=== PATIENT | female | born 1940 | race Caucasian/White ===

== ENCOUNTER 2017-08-20 16:15 | Inpatient (IN) | payer MEDICARE, OTHER ==
[~2017-08-20] VITALS: Ht 165.1 cm; Wt 94.8 kg
[~2017-08-20 16:15] MED LIST: ACET120S PO; ACET500 PO; ACET650SUP PR; ACIDOPHILUS1 EAC1 PO; ASCO500 PO; BENZ100A PO; BEPREVE; CALCAVITDA PO; CALCIUM WITH V1 EACH PO; CETI5 PO; CHOL10002; CLARITIN10 MG PO; CONEST.625 PO; CONESTTC PV; CYAN1000 PO; DESL5 PO; Diovan320 MG PO; ERGO400 PO; ERYT.5TO OD; ESOM20 PO; FURO20 PO; Halls Cough Dr1 EACH MM; METR70GEL VAG; MULVITMINE PO; Metrogel 1% 6060 GM VAG; NAPR220 PO; NASACORT10.8 ML; PEPCID COMPLETE; PIRO10 PO; PREG50 PO; PREMARIN CREAM TOP; PROP30DR OP; SALINE NASAL M126 ML; SERT100 PO; SERT25 PO; TRIA55OI; VALS80 PO; Xalatan2.5 ML BOTHEYES; [UNRECOGNIZED DRUG - OTHER]; [UNRECOGNIZED DRUG - OTHER] BOTHEYES; [UNRECOGNIZED DRUG - OTHER] PR
[2017-09-10] MEDS ORDERED: Nexium40 MG PO (09:54)
[2017-09-10] MEDS ORDERED: ASPI325EC PO (11:41)
[2017-09-10] MEDS ORDERED: OXYC5 PO (11:41)
[2017-09-10] MEDS ORDERED: PROM25 PO (11:43)
[2017-09-11 05:08] LABS: BASOPHILS ABSOLUTE AUTO 0.01 K/mm3 (0.00-0.23); BASOPHILS PERCENT AUTO 0 % (0-2); EOSINOPHILS ABSOLUTE AUTO 0.03 K/mm3 (0.00-0.68); EOSINOPHILS PERCENT AUTO 0 % (0-6); Hematocrit 36.9 % (33.0-51.0); Hemoglobin 11.2 g/dL (11.5-16.0); IMMATURE GRAN ABSOLUTE AUTO 0.03 K/mm3 (0.00-0.10); IMMATURE GRAN PERCENT AUTO 0 % (0-1); LYMPHOCYTES ABSOLUTE AUTO 1.76 K/mm3 (0.84-5.20); LYMPHOCYTES PERCENT AUTO 22 % (21-46); MONOCYTES ABSOLUTE AUTO 0.89 K/mm3 (0.16-1.47); MONOCYTES PERCENT AUTO 11 % (4-13); Mean Corpuscular HGB 25.6 pg (26.0-34.0); Mean Corpuscular HGB Conc 30.4 g/dL (31.5-36.5); Mean Corpuscular Volume 84 fL (80-100); NEUTROPHILS ABSOLUTE AUTO 5.29 K/mm3 (1.96-9.15); NEUTROPHILS PERCENT AUTO 66 % (41-73); RDW Coefficient Variation 14.8 % (11.7-14.2); RDW Standard Deviation 45.2 fL (35.1-46.3); Red Blood Cell Count 4.37 M/mm3 (3.80-5.20); White Blood Cell Count 8.01 K/mm3 (4.00-11.30)
[2017-09-11 05:12] LABS: Mean Platelet Volume 10.6 fL (9.1-12.4); Platelet Count 149 K/mm3 (150-400)
[2017-09-11 05:23] LABS: Anion Gap 7 mmol/L (6-16); Blood Urea Nitrogen 17 mg/dL (8-24); Bun/Creatinine Ratio 23.8 (12.0-20.0); CO2, Blood 29 mmol/L (21-32); Calcium, Blood 8.5 mg/dL (8.5-10.1); Chloride, Blood 104 mmol/L (98-108); Creatinine, Blood 0.71 mg/dL (0.40-1.00); Glomerular Filtration Rate >60 (60-); Glucose, Blood 114 mg/dL (70-99); Magnesium, Blood 2.3 mg/dL (1.6-2.4); Potassium, Blood 4.1 mmol/L (3.5-5.5); Sodium, Blood 140 mmol/L (136-145)
== END 2017-09-15 16:55 | DRG 470 ==
LOC: SURS 09-10 09:15 → PRE IP 09-10 09:15 → SURS 09-10 14:22
PROVIDERS: Orthopaedic Surgery
PROC: 8E0YXBZ Computer Assisted Procedure of Lower Extremity (ICD-10-PCS; 2017-09-10)
PROC: 0SRD0J9 Replacement of Left Knee Joint with Synthetic Substitute, Cemented, Open Approach (ICD-10-PCS; principal; 2017-09-10 10:30)
DX: M17.12 Unilateral primary osteoarthritis, left knee (principal); F32.9 Major depressive disorder, single episode, unspecified; I10 Essential (primary) hypertension; Z79.899 Other long term (current) drug therapy; Z88.5 Allergy status to narcotic agent; Z88.8 Allergy status to other drugs, medicaments and biological substances; Z87.891 Personal history of nicotine dependence
CPT/HCPCS: 36415; 73560-LT; 80048; 83735; 85025; 86850; 86900; 86901; 88300; 97110; 97116; 97162; 97530; C1713; C1776; G8978; G8979; G8980; J0171; J0690; J0735; J1100; J1885; J2250; J2370; J2405; J2795; J3010; J7120; Q0163

== ENCOUNTER 2017-11-17 19:04 | Emergency (ER) | payer MEDICARE, OTHER ==
[~2017-11-17] VITALS: Ht 167.6 cm; Wt 95.2 kg
[~2017-11-17 19:04] MED LIST changes: +ASPI325EC PO; +Nexium40 MG PO; +OXYC5 PO; +PROM25 PO
[2017-11-17 19:50] LABS: BASOPHILS ABSOLUTE AUTO 0.06 K/mm3 (0.00-0.23); BASOPHILS PERCENT AUTO 1 % (0-2); EOSINOPHILS ABSOLUTE AUTO 0.62 K/mm3 (0.00-0.68); EOSINOPHILS PERCENT AUTO 6 % (0-6); Hematocrit 36.7 % (33.0-51.0); Hemoglobin 11.4 g/dL (11.5-16.0); IMMATURE GRAN ABSOLUTE AUTO 0.03 K/mm3 (0.00-0.10); IMMATURE GRAN PERCENT AUTO 0 % (0-1); LYMPHOCYTES ABSOLUTE AUTO 3.29 K/mm3 (0.84-5.20); LYMPHOCYTES PERCENT AUTO 34 % (21-46); MONOCYTES ABSOLUTE AUTO 0.84 K/mm3 (0.16-1.47); MONOCYTES PERCENT AUTO 9 % (4-13); Mean Corpuscular HGB 25.7 pg (26.0-34.0); Mean Corpuscular HGB Conc 31.1 g/dL (31.5-36.5); Mean Corpuscular Volume 83 fL (80-100); Mean Platelet Volume 10.4 fL (9.1-12.4); NEUTROPHILS ABSOLUTE AUTO 4.96 K/mm3 (1.96-9.15); NEUTROPHILS PERCENT AUTO 51 % (41-73); Platelet Count 251 K/mm3 (150-400); RDW Coefficient Variation 14.6 % (11.7-14.2); Red Blood Cell Count 4.43 M/mm3 (3.80-5.20)
[2017-11-17 20:33] LABS: Alanine Aminotransfer (ALT/SGP 17 U/L (12-78); Albumin, Blood 3.7 g/dL (3.4-5.0); Albumin/Globulin Ratio 1.1 (0.8-1.8); Alk Phos 73 U/L (50-136); Anion Gap 6 mmol/L (6-16); Aspartate Aminotrans (AST/SGOT 16 U/L (12-37); Bilirubin, Total 0.2 mg/dL (0.1-1.0); Blood Urea Nitrogen 22 mg/dL (8-24); Bun/Creatinine Ratio 25.8 (12.0-20.0); CO2, Blood 26 mmol/L (21-32); Calcium, Blood 9.1 mg/dL (8.5-10.1); Chloride, Blood 106 mmol/L (98-108); Creatinine, Blood 0.85 mg/dL (0.40-1.00); Globulin, Blood 3.3 g/dL (2.2-4.0); Glomerular Filtration Rate >60 (60-); Glucose, Blood 106 mg/dL (70-99); Potassium, Blood 3.8 mmol/L (3.5-5.5); Sodium, Blood 138 mmol/L (136-145)
== END 2017-11-17 22:05 | disposition home or self-care (01) ==
LOC: ER 19:04
PROVIDERS: Emergency Medicine
DX: R42 Dizziness and giddiness (principal); I10 Essential (primary) hypertension; Z88.5 Allergy status to narcotic agent; Z88.8 Allergy status to other drugs, medicaments and biological substances; Z91.048 Other nonmedicinal substance allergy status; Z91.040 Latex allergy status; Z79.82 Long term (current) use of aspirin; Z79.899 Other long term (current) drug therapy; W19.XXXA Unspecified fall, initial encounter
CPT/HCPCS: 36415; 70450; 80053; 81000; 85025; 93005; 93010; 99284

== ENCOUNTER → 2018-01-29 | Outpatient (CLI) | payer MEDICARE, OTHER ==
[2018-01-29 17:18] LABS: Source, Urine Clean Catch
[2018-01-29 19:09] LABS: Bilirubin, Urine Neg (Neg); Blood, Urine 1+ (Neg); Glucose Qualitative, Urine Neg (Neg); Ketones, Urine Neg (Neg); Leukocyte Esterase, Urine Neg (Neg); Nitrite, Urine Neg (Neg); Protein, Urine Neg (Neg); Specific Gravity, Urine 1.005 (1.003-1.022); Urobilinogen, Urine 1+ (Normal)
[2018-01-29 19:15] LABS: Appearance, Urine Clear (Clear); Color, Urine Yellow (P-Yellow); White Blood Cells, Urine 0-2 /hpf (0-5)
[2018-01-29 19:16] LABS: Bacteria Few /hpf; Squamous Epithelial Cells Few /hpf (Few)
== END | disposition home or self-care (01) ==
LOC: OLS 17:16 → LAB SHORT 17:16
PROVIDERS: Internal Medicine
DX: R32 Unspecified urinary incontinence (principal)
CPT/HCPCS: 81001

== ENCOUNTER 2018-02-02 14:24 | Day surgery (SDC) | payer MEDICARE, OTHER ==
[2018-02-02] MEDS ORDERED: FURO20 PO (15:20)
[2018-02-02] MEDS ORDERED: CLARITIN PO (15:21)
[2018-02-02] MEDS ORDERED: ERYTHROMYCIN BOTHEYES (15:23)
[2018-02-02] MEDS ORDERED: CYAN500 PO (15:24)
== END 2018-02-02 15:08 | disposition home or self-care (01) ==
LOC: ATC 14:24
DX: N39.46 Mixed incontinence (principal); Z79.899 Other long term (current) drug therapy; I10 Essential (primary) hypertension; K21.9 Gastro-esophageal reflux disease without esophagitis; E78.5 Hyperlipidemia, unspecified; F32.9 Major depressive disorder, single episode, unspecified; J44.9 Chronic obstructive pulmonary disease, unspecified; G47.33 Obstructive sleep apnea (adult) (pediatric); M79.7 Fibromyalgia; E66.9 Obesity, unspecified; Z87.891 Personal history of nicotine dependence; Z68.33 Body mass index [BMI] 33.0-33.9, adult

== ENCOUNTER → 2018-12-29 | Outpatient (CLI) | payer MEDICARE, OTHER ==
[~2018-12-29] MED LIST changes: +ACIDOPHILUS PO; +Avapro300 MG PO; +CLARITIN PO; +CYAN500 PO; +Caltrate-600 W1 EACH PO; +Colace100 MG PO; +ERYTHROMYCIN BOTHEYES; +IRBESARTAN300 MG PO; +KETOROLAC TROMET5 ML; +LIDO700A20 TOP; +METAMUCIL0.4 GM; +METROGEL TOP; +MIRALAX17 GM PO; +Prednisolone Ace5 ML; +Reclast 55 MG/100 M; -SERT25 PO; +SERT50 PO; +VITAMIN D-32000 UNIT PO; +Vitamin B-121000 MCG PO; +ZYRTEC10 M1 PO; +Zoloft100 MG PO
== END | disposition home or self-care (01) ==
LOC: LAB SHORT 11:31 → PLD 11:31
DX: D48.5 Neoplasm of uncertain behavior of skin (principal)
CPT/HCPCS: 88305

== ENCOUNTER 2019-02-17 16:32 | Observation (INO) | payer MEDICARE, OTHER ==
[~2019-02-17] VITALS: Ht 167.6 cm; Wt 95.6 kg
[~2019-02-17 16:32] MED LIST changes: -ACIDOPHILUS PO; -Avapro300 MG PO; -Caltrate-600 W1 EACH PO; -Colace100 MG PO; -IRBESARTAN300 MG PO; -KETOROLAC TROMET5 ML; -LIDO700A20 TOP; -METAMUCIL0.4 GM; -METROGEL TOP; -MIRALAX17 GM PO; -PREG50 PO; -Prednisolone Ace5 ML; -Reclast 55 MG/100 M; -SERT50 PO; -VITAMIN D-32000 UNIT PO; -Vitamin B-121000 MCG PO; -Xalatan2.5 ML BOTHEYES; -ZYRTEC10 M1 PO; -Zoloft100 MG PO
[2019-02-17 17:18] LABS: BASOPHILS ABSOLUTE AUTO 0.04 K/mm3 (0.00-0.23); BASOPHILS PERCENT AUTO 0 % (0-2); EOSINOPHILS ABSOLUTE AUTO 0.03 K/mm3 (0.00-0.68); EOSINOPHILS PERCENT AUTO 0 % (0-6); Hematocrit 42.7 % (33.0-51.0); Hemoglobin 12.9 g/dL (11.5-16.0); IMMATURE GRAN ABSOLUTE AUTO 0.04 K/mm3 (0.00-0.10); IMMATURE GRAN PERCENT AUTO 0 % (0-1); LYMPHOCYTES ABSOLUTE AUTO 2.65 K/mm3 (0.84-5.20); LYMPHOCYTES PERCENT AUTO 20 % (21-46); MONOCYTES ABSOLUTE AUTO 0.78 K/mm3 (0.16-1.47); MONOCYTES PERCENT AUTO 6 % (4-13); Mean Corpuscular HGB Conc 30.2 g/dL (31.5-36.5); Mean Corpuscular Volume 83 fL (80-100); Mean Platelet Volume 10.4 fL (9.1-12.4); NEUTROPHILS ABSOLUTE AUTO 9.43 K/mm3 (1.96-9.15); NEUTROPHILS PERCENT AUTO 73 % (41-73); Platelet Count 253 K/mm3 (150-400); RDW Coefficient Variation 15.6 % (11.7-14.2); RDW Standard Deviation 47.1 fL (35.1-46.3); Red Blood Cell Count 5.16 M/mm3 (3.80-5.20); White Blood Cell Count 12.97 K/mm3 (4.00-11.30)
[2019-02-17 17:30] LABS: Source, Urine Catheter
[2019-02-17 17:35] LABS: Troponin I <0.015 ng/mL (0.000-0.040)
[2019-02-17 17:38] LABS: Alanine Aminotransfer (ALT/SGP 24 U/L (12-78); Albumin, Blood 3.7 g/dL (3.4-5.0); Albumin/Globulin Ratio 1.1 (0.8-1.8); Alk Phos 76 U/L (50-136); Anion Gap 5 mmol/L (6-16); Aspartate Aminotrans (AST/SGOT 18 U/L (12-37); Bilirubin, Total 0.6 mg/dL (0.1-1.0); Blood Urea Nitrogen 10 mg/dL (8-24); Bun/Creatinine Ratio 14.8 (12.0-20.0); CO2, Blood 28 mmol/L (21-32); Calcium, Blood 9.2 mg/dL (8.5-10.1); Chloride, Blood 108 mmol/L (98-108); Creatinine, Blood 0.68 mg/dL (0.40-1.00); Globulin, Blood 3.5 g/dL (2.2-4.0); Glomerular Filtration Rate >60 (60-); Glucose, Blood 122 mg/dL (70-99); Potassium, Blood 3.8 mmol/L (3.5-5.5); Sodium, Blood 141 mmol/L (136-145); Total Protein, Blood 7.2 g/dL (6.4-8.2)
[2019-02-17 17:38] LABS: Bilirubin, Urine Neg (Neg); Blood, Urine 4+ (Neg); Glucose Qualitative, Urine Neg (Neg); Ketones, Urine 2+ (Neg); Leukocyte Esterase, Urine 1+ (Neg); Nitrite, Urine Neg (Neg); Protein, Urine 1+ (Neg); Urobilinogen, Urine 1+ (Normal)
[2019-02-17 17:58] LABS: Appearance, Urine Clear (Clear); Color, Urine Yellow (P-Yellow)
[2019-02-17 18:00] LABS: Bacteria Rare /hpf; Renal Epithelial Few /hpf (0-Rare); Squamous Epithelial Cells Rare /hpf (Few)
[2019-02-17] MEDS ORDERED: METROGEL TOP (18:11)
[2019-02-17] MEDS ORDERED: BENZ100A PO (18:11)
[2019-02-17] MEDS ORDERED: PREG50 PO ×2 (20:48→21:41)
[2019-02-17] MEDS ORDERED: Avapro300 MG PO (20:49)
[2019-02-17] MEDS ORDERED: SERT50 PO (20:49)
[2019-02-17] MEDS ORDERED: Prednisolone Ace5 ML (20:51)
[2019-02-17] MEDS ORDERED: Xalatan2.5 ML BOTHEYES (20:51)
[2019-02-17] MEDS ORDERED: KETOROLAC TROMET5 ML (20:51)
[2019-02-17] MEDS ORDERED: IRBESARTAN300 MG PO (21:32)
[2019-02-17] MEDS ORDERED: ZYRTEC10 M1 PO (21:33)
[2019-02-17] MEDS ORDERED: ESOM20 PO (21:33)
[2019-02-17] MEDS ORDERED: PIRO10 PO (21:34)
[2019-02-17] MEDS ORDERED: Zoloft100 MG PO (21:34)
[2019-02-17] MEDS ORDERED: Caltrate-600 W1 EACH PO (21:36)
[2019-02-17] MEDS ORDERED: VITAMIN D-32000 UNIT PO (21:38)
[2019-02-17] MEDS ORDERED: ACIDOPHILUS PO (21:39)
[2019-02-17] MEDS ORDERED: ACET500 PO (21:39)
[2019-02-17] MEDS ORDERED: Colace100 MG PO (21:40)
[2019-02-17] MEDS ORDERED: METAMUCIL0.4 GM (21:40)
[2019-02-17] MEDS ORDERED: Vitamin B-121000 MCG PO (21:40)
[2019-02-17] MEDS ORDERED: MIRALAX17 GM PO (21:41)
[2019-02-17] MEDS ORDERED: LIDO700A20 TOP (21:42)
[2019-02-17] MEDS ORDERED: Reclast 55 MG/100 M (21:42)
--- NOTE | 2019-02-18 04:57 | NUR ---
SHIFT SUMMARY: PT IS ALERT AND ORIENTED. PT IS CALM AND COOPERATIVE WITH CARE. PT CALLS APPROPRIATELY. PT IS A ONE PERSON ASSIST WITH FWW. CAREGIVER AT BEDSIDE DURING ADMISSION. PT DENIES PAIN, NAUSEA, VOMITING, AND SOB. PT HAD NO SYNCOPAL EPISODES OVERNIGHT. PT SLEPT MUCH OF THE SHIFT WHEN NOT DISTURBED. PT TO HAVE ECHO AND CAROTID DUPLEX THIS AM. NO ACUTE CHANGES OR COMPLICATIONS THIS SHIFT. BED IN LOW POSITION, CALL LIGHT WITHIN REACH. WILL CONTINUE TO MONITOR.
[2019-02-18 05:18] LABS: Hematocrit 38.2 % (33.0-51.0); Hemoglobin 11.7 g/dL (11.5-16.0); Mean Corpuscular HGB Conc 30.6 g/dL (31.5-36.5); Mean Corpuscular Volume 82 fL (80-100); Mean Platelet Volume 10.6 fL (9.1-12.4); Platelet Count 210 K/mm3 (150-400); RDW Coefficient Variation 15.8 % (11.7-14.2); RDW Standard Deviation 46.5 fL (35.1-46.3); Red Blood Cell Count 4.68 M/mm3 (3.80-5.20); White Blood Cell Count 9.72 K/mm3 (4.00-11.30)
[2019-02-18 05:41] LABS: Anion Gap 5 mmol/L (6-16); Blood Urea Nitrogen 10 mg/dL (8-24); Bun/Creatinine Ratio 14.2 (12.0-20.0); CO2, Blood 27 mmol/L (21-32); Calcium, Blood 8.5 mg/dL (8.5-10.1); Chloride, Blood 111 mmol/L (98-108); Creatinine, Blood 0.71 mg/dL (0.40-1.00); Glomerular Filtration Rate >60 (60-); Glucose, Blood 116 mg/dL (70-99); Potassium, Blood 3.5 mmol/L (3.5-5.5); Sodium, Blood 143 mmol/L (136-145)
--- NOTE | 2019-02-18 14:51 | NUR ---
ECHOCARDIOGRAM COMPLETED
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
--- NOTE | 2019-02-18 18:00 | NUR ---
SHIFT SUMMARY NO ACUTE CHANGES. PATIENT WORKED WITH PT AND OT TODAY. UP ONE ASSIST W/GAIT BELT AND FWW TO BR. ECHO AND CAROTID DOPPLER DONE TODAY. SEVERAL VISITORS CAME OVER THE DAY. PATIENT UP IN CHAIR FOR MEALS. PATIENT REPORTS NO EPISODES OF DIZZINESS TODAY. DENIES PAIN, NAUSEA, AND HSORTNESS OF BREATH. CALL [facility] IN REACH.
--- NOTE | 2019-02-18 21:02 | NUR ---
ASSUMED CARE OF THE PATIENT: PT SITTING UP IN HER CHAIR. SHE DENIES ANY DIZZINESS OR LIGHTHEADNESS. NO SOB OR CHEST PAIN, NO PAIN NOTED. SEE ASSESSEMENT FOR FURTHER DETAILS. MEDS GIVEN PER EMAR. FAMILY FRIEND CURRENTLY IN TO VISIT HER. WILL MONITOR.
--- NOTE | 2019-02-19 06:14 | NUR ---
SHIFT SUMMARY: PATIENT HAD A GOOD NIGHT, SLEPT WELL THROUGHOUT THE NIGHT. DENIED ANY PAIN OR DISCOMFORT TILL THIS MORNING WHEN SHE GOT UP. SHE HAD AN ACCIDENT THAT ENDED UP WITH A LININ CHANGE, AND WASH UP. STATES HER BACK REALLY STARTED TO HURT THIS AM, FROM LAYING ON HER BACK ALL NIGHT. IT GOT BETTER SHE MOVED AROUND. MEDS GIVEN PER EMAR, NO ACUTE CHANGES OTHER THEN ABOVE. WILL REPORT TO DAY SHIFT RN.
--- NOTE | 2019-02-19 16:48 | NUR ---
SHIFT SUMMARY NO ACUTE CHANGES. PATIENT DENIES PAIN, NAUSEA, AND SHORTNESS OF BREATH. PATIENT WORKED WITH PT AND OT. PATIENT UP ONE ASSIST W/FWW TO BR. TREATMENT TEAM WORKING ON SAFE DISCHARGE PLAN FOR PATIENT. PATIENT HAD VISITORS THIS MORNING. UP IN CHAIR READING FOR REST OF DAY. CALL LIGHT IN REACH, WILL CONTINUE TO MONITOR.
--- NOTE | 2019-02-19 19:30 | NUR ---
ASSUMED CARE OF THE PATIENT: PATIENT IS VISITING WITH FAMILY FRIENDS, SHE IS PLEASANT AND IN A GOOD MOOD. ASSESSMENT IS BENIGN OF ANY CONCERNS, SEE CHART FOR MORE DETAILS. WILL CONTINUE TO MONITOR, SHE HAD NO OTHER NEEDS TO NOTE, CALL LIGHT IN REACH.
--- NOTE | 2019-02-19 20:30 | NUR ---
OVERHEARD CONVERSATION BETWEEN THE PATIENT AND HER FRIEND AIDE THAT BROUGHT RED FLAGS TO MY ATTENTION. MILANA WAS VERY AGGRESSIVE IN THE MANNER OF TELLING BETHANY THAT SHE DOES NOT BELONG IN HER HOUSE, THAT SHE IS NOT CAPABLE OF GOING HOME. THAT SHE FEELS SHE NEEDS REHAB AND IS GOING TO PUSH THE DOCTOR TO MAKING SURE IT HAPPENS. SHE APPARENTLY WAS ON THE PHONE PRIOR IN THE HALLWAY FOR 2 HOURS TALKING TO BETHANY'S DAUGHTER ABOUT ALL THE CONCERNS WITH OUT BETHANY'S PERMISSION. MILANA WOULD NOT LISTEN TO BETHANY WHEN SHE STATED SHE IS NOT BAD MILANA IS MAKING HER OUT TO BE. MILANA WOULD PUSH TELLING HER THAT SHE WAS A CERTAIN WAY IN THE MANNER THAT SHE IS NOT CAPABLE OF TAKING CARE OF HER SELF AND THAT SHE NEEDS HELP LIKE SHE WAS TRYING TO CONFENCE HER OF THIS. SHE EVEN GOT HER DAUGHTER TO TELL HER THAT SHE IS GETTING TO OLD TO TAKE CARE OF HER SELF. MILANA EVEN MENTIONED THAT SHE HAS GOT INTO BETHANY'S HOME TO CLEAN, AND WILL BE GOING THROUGH HER BELONGING TO FIND OUT HER INFORMATION AND BETHANY TOLD HER SHE DOES NOT NEED TO DO THAT. MILANA WOULD REPLY NO SHE IS GOING TO DO IT. MILANA ALSO ASKED WHAT WAS BEHIND THE DOORS OF THE LOCKED ROOM DOWN STAIRS AND BETHANY TOLD HER SHE HAD NOT BEEN DOWN THERE FOR TWO YEARS AND IT DOES NOT NEED TO BE OPEN. SO MILANA MENTIONED HOW SHE WILL BREAK INTO THE ROOM TO SEE WHAT NEEDS TO BE DOWN IN THERE. THIS BROUGHT EVEN MORE CONCERNS BETHANY GOT FRUSTREATED BY BEING OVER RULED AND PUSHED THAT SHE JUST CHANGED THE CONVERSATION.MILANA HAD MENTIONED THAT SHE NEEDS A CHECK FOR CAR INSURANCE SO SHE CAN PAY IT EVEN THROUGH SHE WILL NOT LET BETHANY DRIVE. SAID SHE IS NOT SAFE TO DRIVE BUT NEEDS THE INSURANCE PAID TO KEEP THE CARE REGISTERED. BETHANY WROTE HER A CHECK MILANA WAS NOT LETTING UP ON THE ISSUES. BETHANY GOT VERY FRUSTRATED AND TIMIDATED BY MILANA AND DID NOT WANT TO TALK ANY MORE. MILANA THEN LEFT PULLING ME INTO THE HALLWAY MENTIONING THAT SHE DOES WANT BETHANY TO HEAR WHAT SHE HAS TO SAY. SHE WENT ON TO TELL ME THAT SHE WENT INTO THE HOME AND FOUND ATTENDS ALL OVER THE HOME, NO EVIDENCE THAT BETHANY WAS EATING OR TAKING CARE OF HER SELF, SHE FEELS THAT SHE HAS NOT BEEN SLEEPING IN THE BED AND NOT EATING WELL. SINCE THERE WAS NO EVIDENCE OF RECENT USED DISHES. ASKED IF SHE HAD JUST WASHED THEM AND SHE SAID NO THE HOUSE WAS FITHLY LIKE SHE DOES NOT TAKE CARE OF IT. THERE WAS STUFF PILED UP ALL THE WAY. SHE ALSO MENTIONED SHE FEELS THAT BETHANY SHOULD NOT BE DRIVING ANY MORE AND THAT SHE NEEDS TO GO TO REHAB. INFORMED HER THERE IS OTHER OPTIONS LIKE HOME HEALTH AND SHE WAS VERY OPPOSED TO THIS. SHE DID MENTION TO ME THAT SHE WILL BE GOING THROUGH BETHANY BELONGINGS AND FINDING OUT WHAT BILLS SHE HAS AND WHAT HAS NOT BEEN PAID. INFORMED HER THAT SHE SHOULD WAIT TILL BETHANY SHOULD BE THERE, BUT SHE SAID SHE WILL BE DOING IT TOMORROW. SHE WAS EVEN PUSHY THAT THIS IS THEY WAY IT HAS TO BE THAT BETHANY IS NOT SAFE AND CAN NOT REMEMBER EVERY THING AND SHE DOES NOT BELEIVE SHE SHOULD GO BACK HOME. I OFFERED TO CALL THE CHILDREN AND SHE SAID NO SHE ALREADY DID, THE SON IS VERY OVER ANXIOUS AND BE A PROBLEM FOR US AND HER DAUGHTER IS TWO BUSY. WHICH BROUGHT UP MORE RED FLAGS IF THE DAUGHTER CAN SPEAK TO HER FOR TWO HOURS BUT NOT TO THE STAFF CAUSE SHE IS BUSY. LIKE SHE WAS TRYING TO CONTROL THE ENTIRE SITUATION. SHE SEEMED VERY OVER BEARING ON THE FACT THAT SHE HAS TO HAVE CONTROL OF THIS SITUATION AND NO MATTER WHAT BETHANY WANTS SHE WAS GOING TO MAKE SURE IT WAS HER WAY INSTEAD. WILL TALK TO BETHANY TO SEE HOW SHE FEELS ABOUT THE SITUATION.
--- NOTE | 2019-02-19 23:15 | NUR ---
SPOKE TO BETHANY REGARDING THE ENTIRE SITUATION WITH MILANA. BETHANY WAS VERY UPSET AND FEELS LIKE MILANA IS OVER STEPPING HER BOUNDS. SHE FEELS LIKE SHE IS NOT LISTENING TO HER AND FEELS HER PRIVACY IS BEING INVADED. SHE IS A VERY PRIVATE PERSON AND FEELS LIKE MILANA IS NOT FOLLOWING HER WISHES. SHE IS VERY UNCOMFORTABLE ABOUT MILANA GOING THROUGH HER BELONGINGS AND DOES NOT WANT TO THERE TOMORROW TO DO SO. "THAT IS ALL MY PRIVATE INFORMATION THAT SHE DOES NOT HAVE THE RIGHT TO." BETHANY STATED. "SHE CALLS MY CHILDREN AND GO INTO ANOTHER ROOM NOT ALLOWING ME TO KNOW WHAT SHE IS SAYING TO THEM." SHE WAS VERY UPSET THAT SHE DOES NOT KNOW WHAT IS GOING ON. MENTIONED HER TO WHAT MILANA HAD TOLD ME ON HER HOME AND HOW IT WAS FOUND, SHE SAID THAT WAS NOT TRUE. "I MAY BE FORGETFUL AT TIMES BUT IM NOT THAT BAD WHERE I CAN'T REMEMBER HOW I LIVE." DID MENTION ABOUT HER FALLS, AND SHE SAID SHE DOES FALL AT TIMES BUT IT IS NOT OFTEN SHE MILANA STATES. SHE ALSO FEELS MILANA IS NOT TELLING EVERY ONE THE TRUTH. THEREFORE, DISCUSSED WITH HER HOME HEALTH OPTIONS AND INFORMED HER HOW I PRECEIVED MILANA TO BE A LITTLE OVER POWERING, SHE AGREED TO THIS. EVERY SINCE OUR CONVERSATION, BETHANY HAS BEEN UPSET AND WORRIED ABOUT HER STUFF AND HER HOME. SHE PLANS ON CALLING MILANA IN THE MORNING TO STAY OUT OF HER COMPUTER ROOM AND TO LEAVE HER BILLS ALONE. SPOKE TO MILANA CARDOZO CLINICAL COORDINATOR IN REGARDS TO THE CONCERNS, WILL PUT IN A BUTTONHOLER CONSULT AND CALL APS IN THE MORNING.
--- NOTE | 2019-02-20 06:06 | NUR ---
SHIFT SUMMARY: BETHANY HAD A ROUGH START TO HER NIGHT, SHE GOT VERY UPSET WITH MILANA HER FRIEND WHO GOT VERY CONTROLING AND MULIPITIVE WITH HER. SEE OTHER NOTES FOR MORE DETAILS. DUE TO THIS MINING SPECULATOR CONSULT WAS CALLED IN. WILL ALSO PROBALLY CALL APS BEFORE LEAVING TO LET THEM KNOW OF THE SITUATION. OTHER THEN THAT SHE SLEPT WELL THROUGHOUT THE NIGHT. WITH NO ACUTE CHANGES. WILL REPORT TO DAY SHIFT RN.
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
--- NOTE | 2019-02-20 18:36 | NUR ---
NO C/O OF PAIN TODAY, PT PLEASANT AND COOPERATIVE. FRIEND "MILANA" INTO SEE PT AND WAS SPEAKING WITH PHYSICAL THERAPIST AND DR BARRERA. SEE NOTES FROM NURSE LAST NIGHT AND DR BARRERA THIS AM. NO ACUTE CHANGES NOTED THIS SHIFT, WILL CONTINUE TO MONITOR AND REPORT TO ONCOMING RN
--- NOTE | 2019-02-20 21:51 | NUR ---
2039 Correspondence Patient friend Giovanna drooped by and had several concerns about patient. Stated number 1 concern was that she would be discharging home instead of a rehab facility. Giovanna states that she feels the concers of the patients family/friends are not being addressed. Giovanna also states that patient is unable to fully care for herself at home i.e. ADL's/Housework. Giovanna states that patient has had multiple falls at home and appears genuinely afraid of her safety at home. Giovanna also explains that patient has had lapses in her memory. Giovanna also states that patient does not have funds to have a caregiver come into her home. Spoke with patient @ 2114 Patient sitting in recliner upon entry, has crossword in hand and book in lap. Explained this RN's position. Patient is A/O x4 and able to make needs known. Asked patient how she felt about Giovanna's involvement in her care as this appeared to be a concern with previous/current RN/s that have/are provided/ing care to patient. Patient states that she absolutely adores Giovanna but she feels as though she might be overstepping her boundary's when it comes to decision making. Patient states that she just wants to be home. Admits that she has fallen in the past and believes that it is linked to dehydration. Will pass on to day shift Charge about situation. Possibly get care management involved with care.
--- NOTE | 2019-02-21 02:32 | NUR ---
02/21/19 0235 SLEEPING WELL WITHOUT DISTRESS.
--- NOTE | 2019-02-21 07:25 | NUR ---
02/21/19 0635 AWAKENED FOR AM MED AND PT WAS INCONTINENT OF URINE ON BRIEFS,BED LINEN AND GOWN. RN ASSISTED HER TO FOR FULL BATH AND BED LINEN CHANGE. STATES SHE SLEPT VERY WELL. UNEVENTFUL NIGHT.
--- NOTE | 2019-02-21 18:04 | NUR ---
JESSIKA CONSULT FOR EVAL FOR DEMENTIA ORDERED TODAY. MULTIPLE VISITORS IN ROOM T/O THE DAY. NO C/O PAIN OR DISCOMFORT VOICED TODAY. NO ACUTE CHANGES NOTED, WILL CONTINUE TO MONITOR AND REPORT TO ONCOMING RN
--- NOTE | 2019-02-22 03:31 | NUR ---
02/22/19 3720 PT REQUESTING TO SIT IN CHAIR SHE IS UNABLE TO SLEEP. HOUSE NURSE ASSISTED TO BATHROOM FOR VOIDING AND ORAL CARE. UP IN CHAIR READING A BOOK. CHAIR ALARM ON.
--- NOTE | 2019-02-22 03:33 | NUR ---
02/22/19 0120 USED CALL LIGHT TO CALL FOR HELP TO BR FOR VOIDING. AFTERWARDS, RN ASSISTED HER TO BED.
--- NOTE | 2019-02-22 06:18 | NUR ---
02/22/19 0540 CALLED TO GO TO BATHROOM. VITALS STABLE. SLEPT POORLY TONIGHT.
--- NOTE | 2019-02-22 10:19 | NUR ---
Pt visit this AM. Pt is A&Ox4 and denies pain at this time. Listened as Pt expresses her wishes to stay in her home through the summer and then is willing to consider a highter level of care. Pt's caregiver Giovanna is present during visit. Listened as Giovanan expresses concerns with Pt's ability to care for herself. Giovanna reports Pt is incontinent of bladder and wears soiled clothes often. Giovanna reports Pt has history of multiple falls and is forgetful. Giovanna reports finding a stack of unpaid bills with final notices. She also expresses concerns that Pt is not eating properly. Discussed the importance with Giovanna and Pt appointing a healthcare retail representative in the event that Pt is not able to speak for herself. Pt states her daughter Yesica is her healthcare decision maker and her son Sherman is her alternate. Giovanna reports Pt's family also expresses same concerns regarding Pt's ability to care for self. Giovanna reports that she will email this RN Pt's completed advanced directive. Instructed Giovanna and Pt this RN will relay concerns to caremanager. No other concerns reported at this time. Pt's daughter Yesica [phone], Primary Health Care Decision Maker Pt's son Sherman [phone], Alternate Decision Maker Palliative Care will Remain available
--- NOTE | 2019-02-22 16:55 | NUR ---
PATIENT IS ALERT AND ORIENTED X4 WITH MILD FORGETFULLNESS. FAMILY AT THE BEDSIDE REPORT AN INCREASE IN CONFUSION THE LAST FEW WEEKS AT HOME. PATIENT IS A SBA TO THE BATHROOM WITH A FWW AND GAIT BELT. SHE CALLS APPROPRIATELY. NO COMPLAINTS OF PAIN. SHE WORKED WITH PHYSICAL AND OCCUPATIONAL THERAPY TODAY. WILL CONTINUE TO MONITOR.
--- NOTE | 2019-02-22 23:14 | NUR ---
02/22/191999 SKIN REDNESS UNDERNEATH ID AND DNR BANDS TO RT WRIST. MESH DRESSING APPLIED UNDERNEATH BANDS AND LOTION APPLIED BY PT FOR COMFORT.
--- NOTE | 2019-02-23 05:53 | NUR ---
02/23/19 0600 INCONTINENT OF URINE AND ENTIRE BED LINENS ARE WET. ASSISTED TO BR AND PARTIAL BATH GIVEN AND BED LINEN CHANGED. NO OTHR COMPLAINS.
--- NOTE | 2019-02-23 17:11 | NUR ---
SUMMARY/DISCHARGE PT DISCHARGED TO HOME, [employer] RENEE WAS HERE EARLIER AND SAID SHE HAD SOME ERRANDS TO RUN AND SHE WILL RETURN THIS EVENING, PT AND [employer] VERBALIZED UNDERSTANDING OF DISCHARGE INSTRUCTIONS, RENEE SAID SHE HAS ALREADY MADE A FOLLOW UP APPOINTMENT FOR THE PT, CURRENTLY WAITING FOR THE [employer]
== END 2019-02-23 19:17 | disposition home health service (06) ==
LOC: ER 16:32 → MEDS 16:33 → ER 22:18 → MEDS 22:18
PROVIDERS: Emergency Medicine; Nurse Practitioner Acute Care; ADMIT Internal Medicine
DX: R53.1 Weakness (principal); R26.9 Unspecified abnormalities of gait and mobility; G31.84 Mild cognitive impairment of uncertain or unknown etiology; R63.5 Abnormal weight gain; R29.6 Repeated falls; I10 Essential (primary) hypertension; F32.9 Major depressive disorder, single episode, unspecified; K21.9 Gastro-esophageal reflux disease without esophagitis; M79.7 Fibromyalgia; Z79.899 Other long term (current) drug therapy; Z79.52 Long term (current) use of systemic steroids; Z91.048 Other nonmedicinal substance allergy status; Z88.5 Allergy status to narcotic agent; Z91.040 Latex allergy status; Z88.8 Allergy status to other drugs, medicaments and biological substances; W19.XXXA Unspecified fall, initial encounter
CPT/HCPCS: 36415; 51701; 70450; 71046; 80048; 80053; 81001; 82550; 83880; 84443; 84484; 85025; 85027; 87086; 93005; 93010; 93306; 93880; 96361; 96372; 97110; 97112; 97116; 97161; 97166; 97530; 97535; 99285-25; A9270; G0378; J1650; J7030

== ENCOUNTER 2019-05-24 00:09 | Day surgery (SDC) | payer MEDICARE, OTHER ==
[~2019-05-24 00:09] MED LIST changes: +ACIDOPHILUS PO; +Avapro300 MG PO; +Caltrate-600 W1 EACH PO; +Colace100 MG PO; +IRBESARTAN300 MG PO; +KETOROLAC TROMET5 ML; +LIDO700A20 TOP; +METAMUCIL0.4 GM; +METROGEL TOP; +MIRALAX17 GM PO; +PREG50 PO; +Prednisolone Ace5 ML; +Reclast 55 MG/100 M; +SERT50 PO; +VITAMIN D-32000 UNIT PO; +Vitamin B-121000 MCG PO; +Xalatan2.5 ML BOTHEYES; +ZYRTEC10 M1 PO; +Zoloft100 MG PO
== END 2019-05-24 14:48 | disposition home or self-care (01) ==
LOC: ATC 00:09
DX: N39.46 Mixed incontinence (principal); E05.00 Thyrotoxicosis with diffuse goiter without thyrotoxic crisis or storm; I10 Essential (primary) hypertension; K21.9 Gastro-esophageal reflux disease without esophagitis; M89.49 Other hypertrophic osteoarthropathy, multiple sites; E78.5 Hyperlipidemia, unspecified; M81.0 Age-related osteoporosis without current pathological fracture; M47.9 Spondylosis, unspecified; G47.00 Insomnia, unspecified; F32.9 Major depressive disorder, single episode, unspecified; J44.9 Chronic obstructive pulmonary disease, unspecified; M79.7 Fibromyalgia; E66.9 Obesity, unspecified; Z88.5 Allergy status to narcotic agent; Z88.8 Allergy status to other drugs, medicaments and biological substances; Z79.899 Other long term (current) drug therapy
CPT/HCPCS: 51798

== ENCOUNTER → 2019-09-21 | Outpatient (CLI) | payer MEDICARE, OTHER ==
[2019-09-21 10:28] LABS: Alanine Aminotransfer (ALT/SGP 11 U/L (12-78); Albumin, Blood 3.6 g/dL (3.4-5.0); Albumin/Globulin Ratio 1.1 (0.8-1.8); Alk Phos 92 U/L (50-136); Anion Gap 6 mmol/L (6-16); Aspartate Aminotrans (AST/SGOT 8 U/L (12-37); Bilirubin, Total 0.4 mg/dL (0.1-1.0); Blood Urea Nitrogen 17 mg/dL (8-24); CO2, Blood 28 mmol/L (21-32); Calcium, Blood 9.5 mg/dL (8.5-10.1); Chloride, Blood 108 mmol/L (98-108); Creatinine, Blood 0.85 mg/dL (0.40-1.00); Globulin, Blood 3.3 g/dL (2.2-4.0); Glomerular Filtration Rate >60 (60-); Glucose, Blood 103 mg/dL (70-99); Potassium, Blood 4.4 mmol/L (3.5-5.5); Sodium, Blood 142 mmol/L (136-145); Total Protein, Blood 6.9 g/dL (6.4-8.2)
== END | disposition home or self-care (01) ==
LOC: LAB SHORT 10:02 → LAB 10:02
PROVIDERS: Internal Medicine Hematology & Oncology
DX: M81.0 Age-related osteoporosis without current pathological fracture (principal)
CPT/HCPCS: 80053

== ENCOUNTER → 2020-05-16 | Outpatient (CLI) | payer MEDICARE, OTHER | END | disposition home or self-care (01) | LOC: LAB SHORT 09:17 → PLD 09:17 | DX: D37.05 Neoplasm of uncertain behavior of pharynx (principal) | CPT/HCPCS: 88305 ==

== ENCOUNTER → 2020-11-02 | Outpatient (CLI) | payer MEDICARE, OTHER | END | disposition home or self-care (01) | LOC: LAB SHORT 18:59 → LAB 18:59 | PROVIDERS: Internal Medicine Hematology & Oncology | DX: D50.9 Iron deficiency anemia, unspecified (principal) | CPT/HCPCS: 82728; 83540; 83550 ==

== ENCOUNTER → 2020-11-22 | Outpatient (CLI) | payer MEDICARE, OTHER | END | disposition home or self-care (01) | LOC: PLD 10:48 → LAB SHORT 10:48 | DX: L72.0 Epidermal cyst (principal) | CPT/HCPCS: 88304 ==

== ENCOUNTER 2021-03-05 12:19 | Emergency (ER) | payer MEDICARE, OTHER ==
[~2021-03-05] VITALS: Ht 170.2 cm; Wt 70.3 kg
[2021-03-05 12:54] LABS: Source, Urine Catheter
[2021-03-05 12:58] LABS: Appearance, Urine Cloudy (Clear); Bilirubin, Urine Neg (Neg); Blood, Urine 3+ (Neg); Color, Urine Yellow (P-Yellow); Glucose Qualitative, Urine Neg (Neg); Ketones, Urine 4+ (Neg); Leukocyte Esterase, Urine 3+ (Neg); Nitrite, Urine Pos (Neg); Protein, Urine 2+ (Neg); Urobilinogen, Urine 2+ (Normal)
[2021-03-05 12:59] LABS: Hematocrit 41.4 % (33.0-51.0); Hemoglobin 13.2 g/dL (11.5-16.0); Mean Corpuscular HGB 26.6 pg (26.0-34.0); Mean Corpuscular HGB Conc 31.9 g/dL (31.5-36.5); Mean Corpuscular Volume 83 fL (80-100); Mean Platelet Volume 10.8 fL (9.1-12.4); Platelet Count 171 K/mm3 (150-400); RDW Coefficient Variation 13.4 % (11.7-14.2); RDW Standard Deviation 40.8 fL (35.1-46.3); Red Blood Cell Count 4.97 M/mm3 (3.80-5.20); White Blood Cell Count 9.73 K/mm3 (4.00-11.30)
[2021-03-05 13:08] LABS: White Blood Cells, Urine TNTC /hpf (0-5)
[2021-03-05 13:09] LABS: Bacteria Many /hpf; Renal Epithelial Few /hpf (0-Rare); Squamous Epithelial Cells Few /hpf (Few); Transitional Epithelial Cells Few /hpf (0-Rare)
[2021-03-05 13:20] LABS: Alanine Aminotransfer (ALT/SGP 50 U/L (12-78); Albumin, Blood 3.3 g/dL (3.4-5.0); Albumin/Globulin Ratio 1.1 (0.8-1.8); Alk Phos 75 U/L (50-136); Anion Gap 6 mmol/L (6-16); Aspartate Aminotrans (AST/SGOT 36 U/L (12-37); Bilirubin, Total 0.6 mg/dL (0.1-1.0); Blood Urea Nitrogen 19 mg/dL (8-24); Bun/Creatinine Ratio 33.5 (12.0-20.0); CO2, Blood 28 mmol/L (21-32); Calcium, Blood 9.6 mg/dL (8.5-10.1); Chloride, Blood 107 mmol/L (98-108); Creatinine, Blood 0.57 mg/dL (0.40-1.00); Glomerular Filtration Rate >60 (60-); Glucose, Blood 117 mg/dL (70-99); Potassium, Blood 3.5 mmol/L (3.5-5.5); Sodium, Blood 141 mmol/L (136-145); Total Protein, Blood 6.3 g/dL (6.4-8.2)
[2021-03-05] MEDS ORDERED: CEFP200 PO (13:41)
[2021-03-05 14:00] LABS: BASOPHILS ABSOLUTE MAN 0.09 K/mm3 (0.00-0.23); BASOPHILS PERCENT MAN 1 % (0-2); EOSINOPHILS PERCENT MAN 0 % (0-6); LYMPHOCYTES ABSOLUTE MAN 5.44 K/mm3 (0.84-5.20); LYMPHOCYTES PERCENT MAN 56 % (21-46); MONOCYTES ABSOLUTE MAN 0.19 K/mm3 (0.16-1.47); MONOCYTES PERCENT MAN 2 % (4-13); NEUTROPHILS ABSOLUTE MAN 3.98 K/mm3 (1.96-9.15); SEG NEUTROPHILS PERCENT MAN 41 % (41-73); TOTAL CELLS COUNTED 100
== END 2021-03-05 17:05 | disposition home or self-care (01) ==
LOC: ER 12:19
PROVIDERS: Emergency Medicine
DX: N39.0 Urinary tract infection, site not specified (principal); I10 Essential (primary) hypertension; R00.0 Tachycardia, unspecified; R73.03 Prediabetes; Z79.899 Other long term (current) drug therapy; Z88.6 Allergy status to analgesic agent; Z88.5 Allergy status to narcotic agent; Z91.040 Latex allergy status; Z91.048 Other nonmedicinal substance allergy status
CPT/HCPCS: 36415; 80053; 81001; 85025; 87077; 87086; 87186; 93005; 93010; 99284-25; P9612

== ENCOUNTER 2021-03-09 14:37 | Inpatient (IN) | payer MEDICARE, OTHER ==
[~2021-03-09] VITALS: Ht 172.7 cm; Wt 81.7 kg
[~2021-03-09 14:37] MED LIST changes: +CEFP200 PO
[2021-03-09 15:19] LABS: Source, Urine Catheter
[2021-03-09 15:27] LABS: Appearance, Urine Hazy (Clear); Bilirubin, Urine Neg (Neg); Blood, Urine 1+ (Neg); Color, Urine Yellow (P-Yellow); Glucose Qualitative, Urine Neg (Neg); Ketones, Urine 1+ (Neg); Leukocyte Esterase, Urine 3+ (Neg); Nitrite, Urine Neg (Neg); Protein, Urine 1+ (Neg); Specific Gravity, Urine 1.015 (1.003-1.022); Urobilinogen, Urine NORM (Normal); pH, Urine 6.5 (5.0-8.0)
[2021-03-09 15:27] LABS: Hematocrit 39.7 % (33.0-51.0); Hemoglobin 12.8 g/dL (11.5-16.0); Mean Corpuscular HGB 26.8 pg (26.0-34.0); Mean Corpuscular HGB Conc 32.2 g/dL (31.5-36.5); Mean Corpuscular Volume 83 fL (80-100); Mean Platelet Volume 11.4 fL (9.1-12.4); Platelet Count 177 K/mm3 (150-400); RDW Coefficient Variation 13.5 % (11.7-14.2); Red Blood Cell Count 4.77 M/mm3 (3.80-5.20); White Blood Cell Count 14.69 K/mm3 (4.00-11.30)
[2021-03-09 15:47] LABS: Bacteria Mod /hpf; Red Blood Cells, Urine 0-2 /hpf (0-2); Squamous Epithelial Cells Few /hpf (Few); White Blood Cells, Urine 25-50 /hpf (0-5)
[2021-03-09 15:52] LABS: Alanine Aminotransfer (ALT/SGP 37 U/L (12-78); Albumin, Blood 3.2 g/dL (3.4-5.0); Albumin/Globulin Ratio 1.2 (0.8-1.8); Alk Phos 68 U/L (50-136); Anion Gap 5 mmol/L (6-16); Aspartate Aminotrans (AST/SGOT 27 U/L (12-37); Bilirubin, Total 0.4 mg/dL (0.1-1.0); Blood Urea Nitrogen 13 mg/dL (8-24); Bun/Creatinine Ratio 26.3 (12.0-20.0); CO2, Blood 26 mmol/L (21-32); Calcium, Blood 9.3 mg/dL (8.5-10.1); Chloride, Blood 111 mmol/L (98-108); Globulin, Blood 2.6 g/dL (2.2-4.0); Glomerular Filtration Rate >60 (60-); Glucose, Blood 126 mg/dL (70-99); Potassium, Blood 3.4 mmol/L (3.5-5.5); Sodium, Blood 142 mmol/L (136-145); Total Protein, Blood 5.8 g/dL (6.4-8.2); Troponin I 0.017 ng/mL (0.000-0.040)
[2021-03-09 16:52] LABS: BASOPHILS PERCENT MAN 0 % (0-2); EOSINOPHILS ABSOLUTE MAN 0.29 K/mm3 (0.00-0.68); EOSINOPHILS PERCENT MAN 2 % (0-6); LYMPHOCYTES % ATYPICAL MANUAL 3 % (0-0); LYMPHOCYTES ABSOLUTE MAN 8.81 K/mm3 (0.84-5.20); LYMPHOCYTES PERCENT MAN 57 % (21-46); MONOCYTES ABSOLUTE MAN 0.58 K/mm3 (0.16-1.47); MONOCYTES PERCENT MAN 4 % (4-13); NEUTROPHILS ABSOLUTE MAN 4.99 K/mm3 (1.96-9.15); SEG NEUTROPHILS PERCENT MAN 34 % (41-73); TOTAL CELLS COUNTED 100
[2021-03-09] MEDS ORDERED: LATANOPROST2.5 M3 BOTHEYES (18:22)
[2021-03-09] MEDS ORDERED: METHIMAZOLE PO (18:23)
[2021-03-09 22:07] LABS: Free Thyroxine 3.43 ng/dL (0.70-1.60); Thyroid Stimulating Hormone <0.005 uIU/mL (0.360-4.800)
[2021-03-10 05:05] LABS: Hematocrit 37.6 % (33.0-51.0); Hemoglobin 12.3 g/dL (11.5-16.0); Mean Corpuscular HGB 26.5 pg (26.0-34.0); Mean Corpuscular HGB Conc 32.7 g/dL (31.5-36.5); Mean Corpuscular Volume 81 fL (80-100); Mean Platelet Volume 11.4 fL (9.1-12.4); Platelet Count 153 K/mm3 (150-400); RDW Coefficient Variation 13.4 % (11.7-14.2); RDW Standard Deviation 39.6 fL (35.1-46.3); Red Blood Cell Count 4.64 M/mm3 (3.80-5.20); White Blood Cell Count 12.35 K/mm3 (4.00-11.30)
--- NOTE | 2021-03-10 05:05 | NUR ---
SHIFT SUMMARY: REPORT RECEIVED FROM ER NURSE DOUGLAS 2044 ARRIVED ON UNIT 2102. PT SELF TRANSFERED WITH MINIMAL ASSIST TO BED. PT APPEARS A&O TO SELF CONFUSED EASILY REDIRECTABLE 22G IV R HAND WHICH PT LATER PULLED OUT. NEW IV PLACE 20G R FA WRAPPED W/ JESSIE BANDAGE. FREQUENT SAFETY CHECKS EACH TIME PT WAS NAKED AND CONFUSED PT REORIENTATED TO ROOM. PT IS INCONTINENT TO ATTENDS. CALL LIGHT WITHIN REACH BUT PT DOES NOT USE INSTEAD PT CALLS OUT FOR HELP. BED LOWERED SIDE RAILS UP.
[2021-03-10 05:24] LABS: Anion Gap 6 mmol/L (6-16); Blood Urea Nitrogen 8 mg/dL (8-24); Bun/Creatinine Ratio 15.3 (12.0-20.0); CO2, Blood 27 mmol/L (21-32); Calcium, Blood 9.4 mg/dL (8.5-10.1); Chloride, Blood 110 mmol/L (98-108); Creatinine, Blood 0.52 mg/dL (0.40-1.00); Glomerular Filtration Rate >60 (60-); Glucose, Blood 99 mg/dL (70-99); Potassium, Blood 3.5 mmol/L (3.5-5.5); Sodium, Blood 143 mmol/L (136-145)
[2021-03-10 07:28] LABS: BASOPHILS ABSOLUTE MAN 0.12 K/mm3 (0.00-0.23); BASOPHILS PERCENT MAN 1 % (0-2); EOSINOPHILS ABSOLUTE MAN 0.12 K/mm3 (0.00-0.68); EOSINOPHILS PERCENT MAN 1 % (0-6); LYMPHOCYTES ABSOLUTE MAN 7.28 K/mm3 (0.84-5.20); LYMPHOCYTES PERCENT MAN 59 % (21-46); MONOCYTES ABSOLUTE MAN 0.37 K/mm3 (0.16-1.47); MONOCYTES PERCENT MAN 3 % (4-13); NEUTROPHILS ABSOLUTE MAN 4.44 K/mm3 (1.96-9.15); SEG NEUTROPHILS PERCENT MAN 36 % (41-73); TOTAL CELLS COUNTED 100
[2021-03-10 10:15] LABS: Base Excess Venous 6.9 mmol/L; Bicarbonate Venous 28.7 mmol/L (24.0-30.0); PCO2 Venous 53.2 mmHg (38-42); PO2 Venous 35.1 mmHg (38-42); pH Blood Venous 7.39 (7.34-7.37)
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
--- NOTE | 2021-03-11 03:14 | NUR ---
SHIFT SUMMARY PT HAS BEEN AWAKE ALL NIGHT. PT A/O TO SELF ONLY AND HAS BEEN CONFUSED TO HER SURROUNDINGS AND IS DIFFICULT TO REDIRECT. PT IN MEHNAZ VEST, AND IS A HIGH FALL RISK AND ATTEMPTS TO CLIMB OUT OF BED NUMEROUS TIMES T/O THE SHIFT. PT IS PLESANTLY CONFUSED, LAUGHS AND TALKS WITH STAFF. IV ANTIBIOTICS CONTINUED PER ORDERS. VITALS STALE. NO ACUTE CHANGES OVERNIGHT, BED IN LOWEST POSITION, CALL LIGHT WITHIN REACH.
--- NOTE | 2021-03-11 18:24 | NUR ---
SHIFT SUMMARY PATIENT CONFUSED AND DISORIENTED AND WEARING MEHNAZ RESTRAINTS. SHE WAS GIVEN ONE DOSE OF XYPREXA THIS AFTERNNON BECAUSE SHE REQUIRES CONSTANT ATTENTION TO PREVENT HER FROM SLIDING HERSELF OFF THE BED. SHE IS A 1PP ASSIST TO THE BED SIDE COMMODE AND SHE IS INCONTINENT OF URINE AND IS WEARING A BRIEF. SHE IS NOT EASILY REDIRECTED. FAMILY WAS CONSULTED TO TO CALL TOMORROW TO MAKE PLANS ABOUT HER DISCHARGE HOPEFULLY TO A MEMORY FASCILITY IN THE AREA.
--- NOTE | 2021-03-12 03:34 | NUR ---
ACADEMIC ADMINISTRATOR SUMMARY AWAKE AT INTERVALS, MULTIPLE ATTEMPTS TO GET OUT OF BED, EVEN WITH MEHNAZ VEST ON. NOT REDIRECTABLE, MD NOTIFIED AND ORDERS FOR 4 RAILS UP INCLUDED IN RESTRAINTS. INCONT OF URINE A FEW TIMES, LINEN CHANGED. IV ANTIBIOTICS ADMINISTERED FOR UTI. SEROQUEL ORDERED AND ADMINISTERED. CALL LIGHT IN REACH. SAFETY ENCOURAGED. WILL CONTINUE TO MONITOR
--- NOTE | 2021-03-12 16:46 | NUR ---
SHIFT SUMMARY. LETAHRGIC, AWAKENS WITH VERBAL STIMULATION, ORIENTATED TO SELF, PT SLEEPING OFF AND ON T/O SHIFT. CONTINUES WITH MEHNAZ VEST RESTRAINT TO PREVENT FALLS, TOLERATING WITH ISSUE. UP TO CHAIR FOR LUNCH WITH P/T. PT DENIES PAIN, SOB, N/V. NO S/SX OF DISTRESS OR DISCOMFORT. NO OTHER CHANGES OR CONCERNS.
--- NOTE | 2021-03-13 03:58 | NUR ---
SHIFT SUMMARY ADMITTED FOR UTI/SEPSIS. DNR CODE. MEHNAZ VEST IN PLACE FOR CONFUSION/IMPULSIVENESS. AWAITING PLACEMENT IF QUALIFIED. COOPERATIVE WITH CARE, ALTHOUGH CONFUSED. NO NEW CONCERNS THIS SHIFT.
[2021-03-13 07:53] LABS: Hematocrit 41.7 % (33.0-51.0); Hemoglobin 13.5 g/dL (11.5-16.0); Mean Corpuscular HGB 27.2 pg (26.0-34.0); Mean Corpuscular HGB Conc 32.4 g/dL (31.5-36.5); Mean Corpuscular Volume 84 fL (80-100); Mean Platelet Volume 10.9 fL (9.1-12.4); Platelet Count 171 K/mm3 (150-400); RDW Coefficient Variation 13.4 % (11.7-14.2); RDW Standard Deviation 41.2 fL (35.1-46.3); Red Blood Cell Count 4.97 M/mm3 (3.80-5.20); White Blood Cell Count 11.49 K/mm3 (4.00-11.30)
[2021-03-13 08:16] LABS: Alanine Aminotransfer (ALT/SGP 38 U/L (12-78); Albumin, Blood 2.8 g/dL (3.4-5.0); Alk Phos 67 U/L (50-136); Anion Gap 4 mmol/L (6-16); Aspartate Aminotrans (AST/SGOT 27 U/L (12-37); Bilirubin, Total 0.5 mg/dL (0.1-1.0); Blood Urea Nitrogen 12 mg/dL (8-24); Bun/Creatinine Ratio 18.9 (12.0-20.0); CO2, Blood 30 mmol/L (21-32); Calcium, Blood 9.2 mg/dL (8.5-10.1); Chloride, Blood 108 mmol/L (98-108); Creatinine, Blood 0.64 mg/dL (0.40-1.00); Globulin, Blood 2.8 g/dL (2.2-4.0); Glomerular Filtration Rate >60 (60-); Glucose, Blood 101 mg/dL (70-99); Potassium, Blood 3.6 mmol/L (3.5-5.5); Sodium, Blood 142 mmol/L (136-145); Total Protein, Blood 5.6 g/dL (6.4-8.2)
--- NOTE | 2021-03-14 04:24 | NUR ---
SHIFT SUMMARY PT IS A&O X2, NO C/O ANY KIND, VSS, SLEPT T/O THE NIGHT & SLEEPING AT THIS TIME, REPOS Q2 FOR COMFORT, CALL LIGHT IN REACH, BED ALARM ACTIVE, WILL CONT TO MONITOR UNTIL REPORT GIVEN TO DAY RN.
[2021-03-14 05:25] LABS: Hematocrit 39.7 % (33.0-51.0); Hemoglobin 12.7 g/dL (11.5-16.0); Mean Corpuscular HGB 26.7 pg (26.0-34.0); Mean Corpuscular Volume 84 fL (80-100); Mean Platelet Volume 11.3 fL (9.1-12.4); Platelet Count 158 K/mm3 (150-400); RDW Coefficient Variation 13.3 % (11.7-14.2); RDW Standard Deviation 40.9 fL (35.1-46.3); Red Blood Cell Count 4.75 M/mm3 (3.80-5.20); White Blood Cell Count 8.83 K/mm3 (4.00-11.30)
[2021-03-14 05:55] LABS: Albumin, Blood 2.7 g/dL (3.4-5.0); Anion Gap 4 mmol/L (6-16); Blood Urea Nitrogen 18 mg/dL (8-24); Bun/Creatinine Ratio 22.7 (12.0-20.0); CO2, Blood 31 mmol/L (21-32); Calcium, Blood 9.1 mg/dL (8.5-10.1); Chloride, Blood 106 mmol/L (98-108); Creatinine, Blood 0.79 mg/dL (0.40-1.00); Glomerular Filtration Rate >60 (60-); Glucose, Blood 99 mg/dL (70-99); Phosphorus, Blood 3.2 mg/dL (2.5-4.9); Potassium, Blood 3.8 mmol/L (3.5-5.5); Sodium, Blood 141 mmol/L (136-145)
[2021-03-14 09:50] LABS: Thyroid Stimulating Hormone <0.005 uIU/mL (0.360-4.800); Thyroxine (T4) 14.5 ug/dL (4.8-13.9)
--- NOTE | 2021-03-14 16:27 | NUR ---
SHIFT SUMMARY PT MORE A&O THIS SHIFT, ABLE TO STATE NAME, PLACE, AND WHY SHE IS HERE. SHE DOES HAVE MOMEENTS OF CONFUSION AT TIMES. SHE IS NOT ATTEMPTING TO GET UP WITHOUT ASSISTANCE, IS ABLE TO FOLLOW COMMANDS AND IS NO LONGER REQUIRING MEHNAZ. RETRAINTS DC'D AT 0800. INCONT OF BOTH URINE AND STOOL. GOOD ORAL INTAKE. DENIES ANY PAIN OR DISTRESS. PT IS TO DC TO SNF AND THEN FAMILY IS DISCUSSING ASSISTED LIVING. PT IS CURRENTLY RESTING IN HER RECLINER c CHAIR ALARM ON. CALL LIGHT IS WITHIN REACH.
--- NOTE | 2021-03-15 06:14 | NUR ---
SHIFT SUMMARY NO ACUTE CHANGES THIS SHIFT, NO C/O ANY KIND, SLEPT T/O THE NIGHT & SLEEPING AT THIS TIME, CALL LIGHT IN REACH, WILL CONT TO MONITOR UNTIL REPORT GIVEN TO DAY RN.
[2021-03-15 14:59] LABS: SARS-Cov-2 (COVID-19) PCR, MMC NEGATIVE (NEGATIVE)
--- NOTE | 2021-03-15 18:24 | NUR ---
PATIENT D/C'D TO [facility], REPORT CALLED TO CAS ARMAS. DC PACKET AND PATIENT BELONGINGS SENT WITH FRENCH BINDER. PATIENT DENIES ANY FURTHER QUESTIONS OR CONCERNS.
== END 2021-03-15 18:11 | DRG 871 ==
LOC: ER 14:37 → MEDS 20:03
PROVIDERS: Emergency Medicine; Family Medicine; Hospitalist; ADMIT Internal Medicine
DX: A41.51 Sepsis due to Escherichia coli [E. coli] (principal); G92 Toxic encephalopathy; N39.0 Urinary tract infection, site not specified; E87.1 Hypo-osmolality and hyponatremia; Z66 Do not resuscitate; R26.81 Unsteadiness on feet; Z20.822 Contact with and (suspected) exposure to COVID-19; I10 Essential (primary) hypertension; E03.9 Hypothyroidism, unspecified; F32.9 Major depressive disorder, single episode, unspecified; G30.9 Alzheimer's disease, unspecified; F02.80 Dementia in other diseases classified elsewhere, unspecified severity, without behavioral disturbance, psychotic disturbance, mood disturbance, and anxiety; M79.7 Fibromyalgia; Z60.2 Problems related to living alone; M19.90 Unspecified osteoarthritis, unspecified site; E05.90 Thyrotoxicosis, unspecified without thyrotoxic crisis or storm; K21.9 Gastro-esophageal reflux disease without esophagitis; R73.03 Prediabetes; Z90.49 Acquired absence of other specified parts of digestive tract; Z90.710 Acquired absence of both cervix and uterus; Z98.890 Other specified postprocedural states; Z88.8 Allergy status to other drugs, medicaments and biological substances; Z88.5 Allergy status to narcotic agent; Z91.040 Latex allergy status; Z79.899 Other long term (current) drug therapy; W18.30XA Fall on same level, unspecified, initial encounter
CPT/HCPCS: 36415; 70450; 72125; 80048; 80053; 80069; 81001; 82550; 82803; 82947; 83605; 83735; 84436; 84439; 84443; 84484; 85025; 85027; 87040; 87077; 87086; 87186; 93005; 93010; 96365; 96372; 96375; 96376; 97110; 97116; 97162; 97166; 97530; 97535; 99285-25; A9270; G0378; J0696; J1650; J1956; J2060; J7030; J7120; P9612; U0004